=== PATIENT | male | born 1995 | race Caucasian/White ===

== ENCOUNTER 2018-03-29 18:29 | Emergency (ER) | payer OTHER ==
[~2018-03-29] VITALS: Ht 185.4 cm; Wt 75.0 kg
[2018-03-29 18:39] VITALS: BP 121/84; TEMP 98.3
[2018-03-29] MEDS ORDERED: CEPHALEXIN500 M1 (19:13)
[2018-03-29 19:45] VITALS: PULSE 75
== END 2018-03-29 19:45 | disposition home or self-care (01) ==
LOC: COL.ER 18:29
DX: S61.211A Laceration without foreign body of left index finger without damage to nail, initial encounter (principal); W26.0XXA Contact with knife, initial encounter; Y92.009 Unspecified place in unspecified non-institutional (private) residence as the place of occurrence of the external cause; Z23 Encounter for immunization